=== PATIENT | male | born 1955 | race Caucasian/White ===

== ENCOUNTER 2025-01-31 16:34 | Inpatient (IN) | payer MEDICARE, MEDICAID ==
[~2025-01-31] VITALS: Ht 175.3 cm; Wt 60.0 kg
[2025-01-31] MEDS: LORazepam 2 MG/ML VIAL IM ONE (17:51)
[2025-01-31 19:08] LABS: PLATELET COUNT (AUTO) 124 K/uL (150-450); RED BLOOD CELL COUNT(AUTO) 2.66 MIL/uL (4.50-5.90); RED CELL DISTRIBUTION WIDTH 20.6 % (11.5-14.5); WHITE BLOOD COUNT (AUTO) 5.7 K/uL (4.5-11.0)
[2025-01-31 19:22] LABS: CALCIUM, TOTAL 8.6 mg/dL (8.8-10.5); CREATININE 0.90 mg/dL (0.60-1.30); GLOMERULAR FILTR. RATE CALC > 60 mL/min (>60); GLUCOSE,RANDOM 91 mg/dL (70-110); SODIUM SERUM 140 mmol/L (136-145); UREA NITROGEN, BLOOD 20 mg/dL (7-18)
[2025-01-31 19:26] LABS: RBC MORPHOLOGY COMMENT ABNORMAL RBC MORPH
[2025-01-31 20:06] LABS: COVID AG,FIA SOURCE NASAL SWAB
[2025-01-31 20:24] LABS: SARS-COV2 (COVID) ANTIGEN,FIA Negative (Negative)
[2025-01-31] MEDS ORDERED: ZOLPIDEM TARTRATE 10 MG TABLET PO PRN (20:45)
[2025-02-01 00:55] VITALS: O2SAT 95
[2025-02-01 01:20] VITALS: BP 141/67; PULSE 68; RESP 17; TEMP 97.8; O2SAT 97
[2025-02-01 06:49] LABS: PLATELET COUNT (AUTO) 176 K/uL (150-450); RED BLOOD CELL COUNT(AUTO) 3.40 MIL/uL (4.50-5.90); RED CELL DISTRIBUTION WIDTH 20.5 % (11.5-14.5); WHITE BLOOD COUNT (AUTO) 9.4 K/uL (4.5-11.0)
[2025-02-01] MEDS ORDERED: INFLUENZA VIRUS VACCINE TVS (6MO+) 2025-26/PF 45 MCG/0.5 ML SYRINGE IM. ONE (07:00)
[2025-02-01 07:21] LABS: ASPARTATE AMINOTRANSFERASE 46 U/L (15-37); CALCIUM, TOTAL 9.0 mg/dL (8.8-10.5); CHOL/HDL RATIO 2.2 (4.2-7.3); CREATININE 0.73 mg/dL (0.60-1.30); GLOMERULAR FILTR. RATE CALC > 60 mL/min (>60); GLUCOSE,RANDOM 75 mg/dL (70-110); LDL CHOL (CALC.) 38 mg/dL (0-130); SODIUM SERUM 140 mmol/L (136-145); TOTAL PROTEIN, SERUM 8.7 g/dL (6.4-8.2); UREA NITROGEN, BLOOD 15 mg/dL (7-18)
[2025-02-01] MEDS ORDERED: BACITRACIN 28 GM OINTMENT TP PRN (07:30)
[2025-02-01] MEDS ORDERED: MAG HYDROX/ALUMINUM HYD/SIMETH ES 30 ML SUSPENSION UDCUP PO PRN (07:30)
[2025-02-01] MEDS ORDERED: ONDANSETRON 4 MG TABLET PO PRN (07:30)
[2025-02-01] MEDS ORDERED: ACETAMINOPHEN 325 MG TABLET PO PRN (07:30)
[2025-02-01] MEDS ORDERED: OMEPRAZOLE 20 MG CAPSULE PO PRN (07:30)
[2025-02-01] MEDS ORDERED: BENZOCAINE/MENTHOL [CEPACOL] LOZENGE PO PRN (07:30)
[2025-02-01] MEDS ORDERED: DOCUSATE SODIUM 100 MG CAPSULE PO PRN (07:30)
[2025-02-01] MEDS ORDERED: MAGNESIUM HYDROXIDE SUSPENSION 30 ML UDCUP PO PRN (07:30)
[2025-02-01] MEDS ORDERED: ALBUTEROL SULFATE HFA 90 MCG/PUFF 8 GM INHALER IH PRN (07:30)
[2025-02-01] MEDS ORDERED: PETROLATUM,WHITE 28 GM JELLY TP PRN (07:30)
[2025-02-01] MEDS ORDERED: LOPERAMIDE HCL 2 MG CAPSULE PO PRN (07:30)
[2025-02-01] MEDS ORDERED: MELATONIN 5 MG TABLET PO PRN (07:30)
[2025-02-01] MEDS: MULTIVITAMINS WITH MINERALS, THERAPEUTIC TABLET PO SCH (08:07)
[2025-02-01] MEDS: ASPIRIN 81 MG CHEWABLE TABLET PO SCH (08:07)
[2025-02-01] MEDS: CHOLECALCIFEROL (VIT D3) 400 UNITS [10 MCG] TABLET PO SCH (08:07)
[2025-02-01] MEDS: POTASSIUM CHLORIDE 20 MEQ ER TABLET PO ONE (08:09)
[2025-02-01] MEDS: DAPSONE 100 MG TABLET PO SCH (08:13)
[2025-02-01 09:54] VITALS: BP 111/69; PULSE 82; RESP 18; TEMP 98; O2SAT 97
[2025-02-01 20:23] VITALS: BP 110/71; PULSE 86; RESP 18; TEMP 97.4; O2SAT 97
[2025-02-01] MEDS: TAMSULOSIN HCL 0.4 MG CAPSULE PO SCH (20:38)
[2025-02-01] MEDS: ATORVASTATIN CALCIUM 40 MG TABLET PO SCH (20:38)
[2025-02-02] MEDS: LEVOTHYROXINE SODIUM 25 MCG TABLET PO SCH (06:45)
[2025-02-02 08:36] VITALS: RESP 16
[2025-02-02 22:08] VITALS: RESP 18
[2025-02-03 09:34] VITALS: BP 110/69; PULSE 71; RESP 17; TEMP 97.9; O2SAT 98
[2025-02-03 20:24] VITALS: RESP 18
[2025-02-04 15:25] VITALS: BP 116/67; PULSE 75; RESP 18; TEMP 98; O2SAT 97
[2025-02-04 20:04] VITALS: BP 126/72; PULSE 78; RESP 18; TEMP 98; O2SAT 96
[2025-02-05 10:21] VITALS: BP 98/87; PULSE 65; RESP 18; TEMP 97.8; O2SAT 95
[2025-02-05 21:40] VITALS: PULSE 74; RESP 18; TEMP 98.7; O2SAT 94
[2025-02-06 11:27] VITALS: BP 94/61; PULSE 69; RESP 16; TEMP 98; O2SAT 95
[2025-02-06 16:02] LABS: ASPARTATE AMINOTRANSFERASE 30 U/L (15-37); CALCIUM, TOTAL 9.1 mg/dL (8.8-10.5); CREATININE 0.58 mg/dL (0.60-1.30); GLOMERULAR FILTR. RATE CALC > 60 mL/min (>60); GLUCOSE,RANDOM 114 mg/dL (70-110); SODIUM SERUM 137 mmol/L (136-145); TOTAL PROTEIN, SERUM 7.8 g/dL (6.4-8.2); UREA NITROGEN, BLOOD 14 mg/dL (7-18)
[2025-02-06] MEDS ORDERED: QUET25TA PO (17:07)
[2025-02-06] MEDS ORDERED: LEVO25TA9 PO (17:20)
[2025-02-06] MEDS ORDERED: LEVE-71 PO (17:21)
[2025-02-06] MEDS ORDERED: ASPI-1450 PO (17:22)
[2025-02-06] MEDS ORDERED: CHOL10CA2 PO (17:23)
[2025-02-06] MEDS ORDERED: DAPS100T14 PO (17:24)
[2025-02-06] MEDS ORDERED: MULT-660 PO (17:26)
[2025-02-06] MEDS ORDERED: TAMS0.4C94 PO (17:27)
[2025-02-06] MEDS ORDERED: ATOR40TA28 PO (17:27)
[2025-02-06 18:02] VITALS: RESP 18
[2025-02-06] MEDS: IBUPROFEN 600 MG TABLET PO PRN (18:04)
[2025-02-06 19:10] VITALS: RESP 16
[2025-02-06 20:13] VITALS: BP 132/80; PULSE 99; RESP 16; TEMP 98.9; O2SAT 94
[2025-02-07 03:07] LABS: HEPATITIS B CORE IGM Negative (Negative); HEPATITIS C AB (EIA) Non Reactive (Non Reactive)
== END 2025-02-06 08:30 | DRG 885 ==
LOC: EMS 16:40 → 3EC 02-01 01:24
PROVIDERS: ADMIT Psychiatry & Neurology Psychiatry; ATTEND Psychiatry & Neurology Psychiatry
PROC: GZHZZZZ Group Psychotherapy (ICD-10-PCS; principal; 2025-02-01)
PROC: GZ52ZZZ Individual Psychotherapy, Cognitive (ICD-10-PCS; 2025-02-01)
DX: F29 Unspecified psychosis not due to a substance or known physiological condition (principal); I11.0 Hypertensive heart disease with heart failure; F03.92 Unspecified dementia, unspecified severity, with psychotic disturbance; I50.22 Chronic systolic (congestive) heart failure; F03.94 Unspecified dementia, unspecified severity, with anxiety; F03.918 Unspecified dementia, unspecified severity, with other behavioral disturbance; F20.9 Schizophrenia, unspecified; D64.9 Anemia, unspecified; D69.6 Thrombocytopenia, unspecified; Z20.822 Contact with and (suspected) exposure to COVID-19; E03.9 Hypothyroidism, unspecified; G40.909 Epilepsy, unspecified, not intractable, without status epilepticus; G47.00 Insomnia, unspecified; K59.00 Constipation, unspecified; N40.0 Benign prostatic hyperplasia without lower urinary tract symptoms; K21.9 Gastro-esophageal reflux disease without esophagitis; E55.9 Vitamin D deficiency, unspecified; I25.10 Atherosclerotic heart disease of native coronary artery without angina pectoris; H54.7 Unspecified visual loss; Z87.820 Personal history of traumatic brain injury; Z88.1 Allergy status to other antibiotic agents; Z88.2 Allergy status to sulfonamides; Z88.3 Allergy status to other anti-infective agents; Z91.148 Patient's other noncompliance with medication regimen for other reason; Z79.899 Other long term (current) drug therapy
CPT/HCPCS: 80048; 80053; 80061; 80074; 82140; 83036; 84132; 84436; 84443; 85025; 87081; 99285; G0480; J1200; J1630; J2060